=== PATIENT | female | born 1985 | race Caucasian/White ===

== ENCOUNTER 2021-04-23 13:27 | Outpatient (CLI) | payer OTHER ==
--- NOTE | 2021-04-23 15:37 | Ultrasound Report ---
PROCEDURE: OB First Trimester INDICATIONS: SUP OF ELDERLY MULTIGRAVIDA OUTSIDE/PRIOR DATING DATA: Last menstrual period (LMP): 02/09/2021. LMP-based estimated date of delivery (JENNA): 11/16/2021. First dating scan (date and location): 04/23/21. Estimated date of delivery (JENNA) from first dating scan: 11/13/2021. The below data below was generated using the ultrasound JENNA of 11/13/2021 TECHNIQUE: Real-time scanning was performed of the fetus and maternal pelvic organs, with image documentation. COMPARISON: None FINDINGS: Embryo: Single living intrauterine identified. pole identified. [place]-rump length me asures 3.9 cm corresponding to ultrasound estimate of gestational age of 10 weeks 6 days. Heart rate: 176 Measurement variability in dating: +/- 4 weeks by LMP, +/- 7 days by mean sac diameter (use before 6 weeks gestation if crown-rump length not able to be measured), +/- 5 days by crown-rump length (6-12 weeks gestation). Maternal organs: 2.0 x 1.9 x 2.2 cm right corpus luteal cyst. IMPRESSION: Single intrauterine with ultrasound estimated gestational age of 10 weeks 6 days correspond ing to ultrasound JENNA of 11/13/2021. Reviewed by: Jeanette Cooper MD, PhD on 04/23/2021 3:35 PM PDT Approved by: Jeanette Cooper MD, PhD on 04/23/2021 3:35 PM PDT Station ID: [id number]
== END 2021-04-23 13:28 | disposition home or self-care (01) ==
LOC: DI 13:27
PROVIDERS: ATTEND Obstetrics & Gynecology
DX: O09.521 Supervision of elderly multigravida, first trimester (principal); Z3A.10 10 weeks gestation of pregnancy; Z36.89 Encounter for other specified antenatal screening
CPT/HCPCS: 36415; 80306; 84443; 85025; 86592; 86762; 86769; 86787; 86803; 86850; 86900; 86901; 87340; 87389

== ENCOUNTER 2021-04-23 13:41 | Outpatient (CLI) | payer OTHER ==
[2021-04-23 14:07] LABS: BASOPHILS # (AUTO) 0.1 10^3/uL (0.0-0.1); BASOPHILS % (AUTO) 0.4 %; EOSINOPHILS % (AUTO) 0.3 %; HCT - HEMATOCRIT 39.5 % (37.0-47.0); HGB - HEMOGLOBIN 12.8 g/dL (12.0-16.0); LYMPHOCYTES # (AUTO) 2.9 10^3/uL (1.5-3.5); LYMPHOCYTES % (AUTO) 21.2 %; MEAN CORPUSCULAR HEMOGLOBIN 28.5 pg (27.0-31.0); MEAN CORPUSCULAR HGB CONC 32.4 g/dL (32.0-36.0); MEAN PLATELET VOLUME 9.6 fL (7.9-10.8); MONOCYTES # (AUTO) 0.9 10^3/uL (0.0-1.0); MONOCYTES % (AUTO) 6.3 %; NEUTROPHILS # (AUTO) 9.6 10^3/uL (1.5-6.6); PLT - PLATELET COUNT 267 10^3/uL (130-450); RED BLOOD COUNT 4.49 10^6/uL (4.20-5.40); RED CELL DISTRIBUTION WIDTH 12.9 % (12.0-15.0); WHITE BLOOD COUNT 13.6 x10^3/uL (4.8-10.8)
[2021-04-24 12:56] LABS: HEPATITIS C ANTIBODY NON-REACTIVE (NON-REACTIVE)
[2021-04-24 12:57] LABS: HEPATITIS B SURFACE ANTIGEN NON-REACTIVE (NON-REACTIVE)
[2021-04-24 14:46] LABS: HIV AG/AB 4TH GEN NON-REACTIVE (NON-REACTIVE)
== END 2021-04-23 13:42 | disposition home or self-care (01) ==
LOC: LAB 13:41
PROVIDERS: ATTEND Obstetrics & Gynecology
DX: Z36.89 Encounter for other specified antenatal screening (principal); O09.529 Supervision of elderly multigravida, unspecified trimester
CPT/HCPCS: 36415; 80306; 84443; 85025; 86592; 86762; 86769; 86787; 86803; 86850; 86900; 86901; 87340; 87389

== ENCOUNTER 2021-04-28 11:15 | Outpatient (CLI) | payer OTHER ==
[2021-04-29 13:09] LABS: MUDS CUTOFF CONCENTRATIONS CUTOFF CONC BELOW:
[2021-04-29 13:15] LABS: BILIRUBIN,URINE NEGATIVE (NEGATIVE); GLUCOSE, URINE (UA) NEGATIVE (NEGATIVE); KETONES,URINE (UA) NEGATIVE (NEGATIVE); LEUKOCYTE ESTERASE, URINE NEGATIVE (NEGATIVE); NITRITE,URINE NEGATIVE (NEGATIVE); OCCULT BLOOD,URINE NEGATIVE (NEGATIVE); PROTEIN,URINE NEGATIVE (NEGATIVE); UROBILINOGEN,URINE 0.2 (NORMAL) E.U./dL (NORMAL)
[2021-04-29 13:18] LABS: CLARITY,URINE CLEAR (CLEAR)
[2021-04-29 13:28] LABS: WBC,URINE 0-3 /HPF (0-5)
[2021-04-29 13:29] LABS: BACTERIA,URINE Few /HPF (None Seen); RBC,URINE 0-5 /HPF (0-5); SQUAMOUS EPITHELIAL CELL,UR RARE Squamous (<= Few)
[2021-04-29 13:30] LABS: AMPHETAMINE SCREEN,URINE NEGATIVE (NEGATIVE); BARBITURATE SCREEN,UR NEGATIVE (NEGATIVE); BENZODIAZEPINES SCREEN, URINE NEGATIVE (NEGATIVE); COCAINE SCREEN URINE NEGATIVE (NEGATIVE); METHADONE SCREEN, URINE NEGATIVE (NEGATIVE); METHAMPHETAMINES SCREEN, URINE NEGATIVE (NEGATIVE); OPIATE SCREEN, URINE NEGATIVE (NEGATIVE); OXYCODONE SCREEN, URINE NEGATIVE (NEGATIVE); PROPOXYPHENE SCREEN, URINE NEGATIVE (NEGATIVE); THC CANNABINOID SCREEN, URINE NEGATIVE (NEGATIVE); TRICYCLIC ANTIDEPRESSANT,URINE NEGATIVE (NEGATIVE)
[2021-04-29 22:49] LABS: CHLAMYDIA TRACHOMATIS DNA NEGATIVE (NEGATIVE); NEISSERIA GONORRHOEAE DNA NEGATIVE (NEGATIVE); TRICHOMONAS VAGINALIS DNA NEGATIVE (NEGATIVE)
== END 2021-04-28 23:59 | disposition home or self-care (01) ==
LOC: LAB.R 11:15
PROVIDERS: ATTEND Obstetrics & Gynecology
DX: Z36.89 Encounter for other specified antenatal screening (principal)
CPT/HCPCS: 80306; 81001; 87086; 87491; 87591; 87661

== ENCOUNTER 2021-06-23 11:36 | Outpatient (CLI) | payer OTHER ==
--- NOTE | 2021-06-23 12:35 | Ultrasound Report ---
PROCEDURE: Duplex Ext Veins Right INDICATIONS: EDEMA TECHNIQUE: Real-time imaging, as well as color and pulse Doppler interrogation, were performed of the lower extr emity deep veins from the inguinal ligament to the popliteal fossa. COMPARISON: None. FINDINGS: VASCULATURE: Normal spontaneous flow and phasicity, augmentation and waveforms, and compressibility o f the vessels from the common femoral veins through the calf veins. SOFT TISSUES: Prominent varicosities are noted in the lateral soft tissues. IMPRESSION: No sonographic evidence of deep venous thrombus. Reviewed by: Kunal Vergara MD on 06/23/2021 12:34 PM PDT Approved by: Kunal Vergara MD on 06/23/2021 12:34 PM PDT Station ID: [id number]
== END 2021-06-23 11:37 | disposition home or self-care (01) ==
LOC: DI 11:36
PROVIDERS: ATTEND Obstetrics & Gynecology
DX: I82.461 Acute embolism and thrombosis of right calf muscular vein (principal)

== ENCOUNTER 2021-06-30 13:52 | Outpatient (CLI) | payer OTHER ==
--- NOTE | 2021-07-01 09:54 | Ultrasound Report ---
PROCEDURE: OB Detailed Eval INDICATIONS: SUPERVISION OF ELDERLY MULTIGRAVIDA OUTSIDE/PRIOR DATING DATA: Last menstrual period (LMP): February 09, 2021. LMP-based estimated date of delivery (JENNA): November 16, 2021. First dating scan (date and location): [facility]; April 23, 2021. Estimated date of delivery (JENNA) from first dating scan: November 13, 2021. The below data below was generated using the ultrasound JENNA of November 13, 2021 TECHNIQUE: Real-time scanning was performed of the fetus, with image documentation and biometric measurements. COMPARISON: April 23, 2021. FINDINGS: General: A single living intrauterine gestation is present. Presentation: Transverse, variable Placenta: Placental position is posterior, without previa. Amniotic fluid index: 12.9 cm, appropriate for gestational age. heart rate: 148 beats per minute. Maternal cervical canal: 4.6 cm long; normal length is 2.5 cm or more. biometrics: Biparietal diameter: 4.61 cm Head circumference: 17.5 cm Abdominal circumference: 15.7 cm Femur length: 3.2 cm Estimated gestational age from initial scan: not applicable. Composite gestational age from present scan: 20 weeks, 1 day Estimated weight and percentile: 352.5 g +/- 52 g; 36.6% Measurement variability in biometric dating: +/- 10 days from 12-20 weeks gestation, +/- 2 weeks from 20-30 weeks gestation, +/- 3 weeks at 30 weeks gestation or later. Anatomic survey: Neuro: Ventricles are normal at less than 10 mm. Cisterna magna is normal at 3-11 mm. Cerebellum i s normal in size and morphology. Nuchal skin fold: Normal at less than 6 mm between 14 and 20 weeks gestational age. Face: Suboptimally visualized. Spine: No evidence for spina bifida. Heart: Suboptimally visualized heart and ventricular outflow tracts. Diaphragm: Diaphragm is intact. Stomach: Left-sided stomach is present. Kidneys: No hydronephrosis. Normal is less than 5 mm in 2nd trimester, less than 7 mm in 3rd trimester. Cord: 3 vessel cord has orthotopic insertion. Bladder: Normal in size. Extremities: All 4 extremities are visualized. IMPRESSION: Live single intrauterine gestation as detailed above. Reviewed by: Kunal Vergara MD on 07/01/2021 9:53 AM PDT Approved by: Kunal Vergara MD on 07/01/2021 9:53 AM PDT Station ID: [id number]
== END 2021-06-30 13:53 | disposition home or self-care (01) ==
LOC: DI 13:52
PROVIDERS: ATTEND Obstetrics & Gynecology
DX: Z36.89 Encounter for other specified antenatal screening (principal); O09.522 Supervision of elderly multigravida, second trimester; Z3A.20 20 weeks gestation of pregnancy

== ENCOUNTER 2021-08-06 16:29 | Outpatient (CLI) | payer OTHER ==
--- NOTE | 2021-08-09 09:14 | Ultrasound Report ---
PROCEDURE: OB F/U or Repeat INDICATIONS: SUPERVISION OF OUTSIDE/PRIOR DATING DATA: Last menstrual period (LMP): 02/09/2021. LMP-based estimated date of delivery (JENNA): 11/16/2021. First dating scan (date and location): 04/23/2021. Estimated date of delivery (JENNA) from first dating scan: 11/13/2021. The below data below was generated using the ultrasound derived JENNA of 11/13/2021 TECHNIQUE: Real-time scanning was performed of the fetus, with image documentation and biometric measurements. COMPARISON: 04/23/2021, 06/30/2021. FINDINGS: General: A single living intrauterine gestation is present. Presentation: Transverse, head to maternal right. Placenta: Placental position is posterior, without previa. Amniotic fluid index: 11.7 cm, within normal limits for gestational age. Largest pocket measures 3.6 cm. heart rate: 141 beats per minute. Maternal cervical canal: 4.1 cm long; normal length is 2.5 cm or more. Other: A limited anatomic survey was performed for follow-up of structures not well seen on th e prior study. facial profile appears within normal limits. A four-chamber view of the heart as well as right and left ventricular outflow tracts appear within normal limits. The skin line along t he sacral spine was not well seen due to position. IMPRESSION: 1. Single living intrauterine demonstrated in transverse presentation. 2. Limited anatomic survey performed for follow-up demonstrates normal appearance of the facial profile and heart. The sacral spinal region was not well evaluated due to position. Reviewed by: Alfonso Cisse MD on 08/09/2021 9:13 AM PST Approved by: Alfonso Cisse MD on 08/09/2021 9:13 AM PST Station ID: [id number]
== END 2021-08-06 16:30 | disposition home or self-care (01) ==
LOC: DI 16:29
PROVIDERS: ATTEND Obstetrics & Gynecology
DX: O09.529 Supervision of elderly multigravida, unspecified trimester (principal)

== ENCOUNTER 2021-08-18 08:05 | Outpatient (CLI) | payer OTHER ==
[2021-08-18 09:45] LABS: HCT - HEMATOCRIT 32.5 % (37.0-47.0); HGB - HEMOGLOBIN 10.6 g/dL (12.0-16.0); MEAN CORPUSCULAR HEMOGLOBIN 28.2 pg (27.0-31.0); MEAN CORPUSCULAR HGB CONC 32.6 g/dL (32.0-36.0); MEAN CORPUSCULAR VOLUME 86.4 fL (81.0-99.0); MEAN PLATELET VOLUME 9.4 fL (7.9-10.8); RED BLOOD COUNT 3.76 10^6/uL (4.20-5.40); RED CELL DISTRIBUTION WIDTH 13.5 % (12.0-15.0); WHITE BLOOD COUNT 13.3 x10^3/uL (4.8-10.8)
== END 2021-08-18 08:06 | disposition home or self-care (01) ==
LOC: LAB 08:05
PROVIDERS: ATTEND Obstetrics & Gynecology
DX: O09.529 Supervision of elderly multigravida, unspecified trimester (principal)
CPT/HCPCS: 36415; 82947; 82950; 85027

== ENCOUNTER 2021-10-15 09:30 | Outpatient (CLI) | payer OTHER ==
[2021-10-15 16:54] LABS: CREATININE,URINE 27.8 mg/dL; TOTAL VOLUME 24HRS,URINE 3400 mL
[2021-10-15 17:08] LABS: CREATININE 24 HOUR,URINE 945 mg/24h (600-1800); TOTAL PROTEIN,URINE TIMED < 6 mg/dL
== END 2021-10-15 23:59 | disposition home or self-care (01) ==
LOC: LAB 09:30
PROVIDERS: ATTEND Nurse Practitioner Obstetrics & Gynecology
DX: O16.9 Unspecified maternal hypertension, unspecified trimester (principal)
CPT/HCPCS: 82570; 84156

== ENCOUNTER 2021-10-20 08:00 | Outpatient (CLI) | payer OTHER | END 2021-10-20 23:59 | LOC: LAB 08:00 | PROVIDERS: ATTEND Obstetrics & Gynecology | DX: Z36.85 Encounter for antenatal screening for Streptococcus B (principal) | CPT/HCPCS: 87797 ==

== ENCOUNTER 2021-11-01 15:56 | Outpatient (CLI) | payer OTHER ==
--- NOTE | 2021-11-02 00:53 | Ultrasound Report ---
PROCEDURE: OB Biophysical Profile INDICATIONS: SUPERVISION OF ELDERLY MULTIGRAVIDA OUTSIDE/PRIOR DATING DATA: Last menstrual period (LMP): 02/09/2021. LMP-based estimated date of delivery (JENNA): 11/16/2021. First dating scan (date and location): 04/23/2021. Estimated date of delivery (JENNA) from first dating scan: 11/13/2021. The below data below was generated using the ultrasound JENNA of 11/13/2021 TECHNIQUE: Real-time scanning was performed of the fetus, with image documentation. Biophysical pro file was also obtained. Endovaginal scanning: Not performed. COMPARISON: OB ultrasound 08/06/2021 FINDINGS: General: A single living intrauterine gestation is present. Presentation: Vertex Placenta: Placental position is posterior, without previa. Amniotic fluid index: 12 cm, normal for gestational age. Deepest vertical fluid pocket is 5.4 cm. heart rate: 129 beats per minute. Maternal cervical canal: 3.6 cm long; normal length is 2.5 cm or more. Estimated gestational age from initial scan: 38 weeks 2 days Biophysical profile: Tone: 2 points. Movement: 2 points. Respiration: 2 points. Largest pocket of fluid: 2 points. Umbilical artery Doppler: 2.7 at the placental insertion, 2.7 at the midportion, and 2.0 at the dist al attachment Miscellaneous: Left renal pelviectasis is noted measuring 7 mm in anteroposterior dimension. Right re nal pelvis measures 6 mm in anteroposterior dimension. IMPRESSION: 1.Single live intrauterine . 2.Biophysical profile score is 8 of 8. 3.Amniotic fluid index is 12 cm. 4.Borderline left greater than right pelviectasis. Recommend attention on follow-up exams. Reviewed by: Ramy Valencia MD on 11/02/2021 12:51 AM PST Approved by: Ramy Valencia MD on 11/02/2021 12:51 AM PST Station ID: [id number]
== END 2021-11-01 15:57 | disposition home or self-care (01) ==
LOC: DI 15:56
PROVIDERS: ATTEND Obstetrics & Gynecology
DX: O09.523 Supervision of elderly multigravida, third trimester (principal); Z3A.38 38 weeks gestation of pregnancy; O35.8XX0 Maternal care for other (suspected) fetal abnormality and damage, not applicable or unspecified

== ENCOUNTER 2021-11-09 07:57 | Outpatient (CLI) | payer OTHER ==
--- NOTE | 2021-11-09 08:52 | PROCEDURE REPORT ---
- HPI Diagnosis/Indication for NST: Gestational Hypertension - NST Procedure NST Procedure Start Time 11:30 Stop Time 12:05 EFM: 150s, moderate variability, positive accelerations 15x15, no decelerations Aten: 2 contractions, not noted by patient NST reactive - Results and Plan Findings/Impression: 36yo at 39w presenting for NST for chronic hypertension; also complicated by AMA - NST reactive - Plan for IOL in 2d
[2021-11-09 09:35] VITALS: BP 136/89
== END 2021-11-09 09:05 | disposition home or self-care (01) ==
LOC: WFO 07:57 → FBP 08:00 → WFO 09:05
PROVIDERS: ATTEND Obstetrics & Gynecology
DX: O13.3 Gestational [pregnancy-induced] hypertension without significant proteinuria, third trimester (principal); Z3A.39 39 weeks gestation of pregnancy; O09.523 Supervision of elderly multigravida, third trimester
CPT/HCPCS: 59025

== ENCOUNTER 2021-11-11 07:58 | Inpatient (IN) | payer OTHER ==
[2021-11-11] MEDS ORDERED: CARBOPROST TROMETHAMINE 250 MCG/ML AMP IM PRN (09:02)
[2021-11-11] MEDS ORDERED: LACTATED RINGERS 400 ML CERVICA030 PRN (09:02)
[2021-11-11] MEDS ORDERED: OXYTOCIN 10 UNIT/ML VIAL IM PRN (09:02)
[2021-11-11] MEDS ORDERED: hydrALAZINE INJ 20 MG/ML VIAL IVP PRN (09:02)
[2021-11-11] MEDS ORDERED: TRANEXAMIC ACID IN NACL 1,000 MG/100 ML BAG IV PRN (09:02)
[2021-11-11] MEDS ORDERED: LABETALOL 20 MG/4 ML SYRINGE IVP PRN ×2 (09:02)
[2021-11-11] MEDS ORDERED: ACETAMINOPHEN 500 MG TABLET PO PRN (09:02)
[2021-11-11] MEDS ORDERED: LIDOCAINE-MPF 1% 30 ML VIAL ID PRN (09:02)
[2021-11-11] MEDS ORDERED: LACTATED RINGERS 1,000 ML IV PRN (09:02)
[2021-11-11] MEDS ORDERED: LACTATED RINGERS 1,000 ML CERVICA030 PRN (09:02)
[2021-11-11] MEDS ORDERED: TERBUTALINE 1 MG/ML VIAL SUBQ PRN (09:02)
[2021-11-11] MEDS ORDERED: miSOPROStoL 200 MCG TABLET BC PRN (09:02)
[2021-11-11] MEDS ORDERED: miSOPROStoL 200 MCG TABLET PR PRN (09:02)
[2021-11-11] MEDS ORDERED: fentaNYL 100 MCG/2 ML VIAL IVP PRN (09:02)
[2021-11-11] MEDS ORDERED: SODIUM CHLORIDE FLUSH 0.9% 10 ML SYRINGE IVP PRN (09:02)
[2021-11-11] MEDS ORDERED: METHYLERGONOVINE 0.2 MG/ML VIAL IM PRN (09:02)
[2021-11-11] MEDS ORDERED: OXYTOCIN/SODIUM CHLORIDE 500 ML IV PRN ×2 (09:02→22:45)
[2021-11-11] MEDS ORDERED: hydrOXYzine PAMOATE 25 MG CAPSULE PO SCH (09:06)
[2021-11-11] MEDS ORDERED: SODIUM CHLORIDE FLUSH 0.9% 10 ML SYRINGE IVP SCH (10:00)
[2021-11-11] MEDS ORDERED: ROPIVACAINE 0.2% 200 MG/100 ML BAG EP ONE (18:56)
[2021-11-11] MEDS ORDERED: SODIUM CHLORIDE 0.65% NASAL SPRAY NAS PRN (19:07)
[2021-11-11 19:14] LABS: BASOPHILS % (AUTO) 0.4 %; EOSINOPHILS % (AUTO) 0.4 %; HCT - HEMATOCRIT 38.1 % (37.0-47.0); HGB - HEMOGLOBIN 12.8 g/dL (12.0-16.0); LYMPHOCYTES % (AUTO) 14.9 %; MEAN CORPUSCULAR HEMOGLOBIN 28.2 pg (27.0-31.0); MEAN CORPUSCULAR HGB CONC 33.6 g/dL (32.0-36.0); MEAN CORPUSCULAR VOLUME 83.9 fL (81.0-99.0); MEAN PLATELET VOLUME 10.3 fL (7.9-10.8); MONOCYTES % (AUTO) 6.3 %; NEUTROPHILS % (AUTO) 73.4 %; PLT - PLATELET COUNT 214 10^3/uL (130-450); RED BLOOD COUNT 4.54 10^6/uL (4.20-5.40); RED CELL DISTRIBUTION WIDTH 14.6 % (12.0-15.0); WHITE BLOOD COUNT 16.8 x10^3/uL (4.8-10.8)
--- NOTE | 2021-11-11 19:16 | HISTORY & PHYSICAL EXAMINATION ---
Admit History - : 3 Parity: 2 Risk/History: positive: induced HTN Complications This : positive: Chronic HTN Smoking Status: Never smoker - Mother's Labs Mother's Blood Type: positive: A Mother's RH: positive: Positive GBS: positive: Group B Step Negative Rubella Status: positive: Immune - Other Maternal History Other Maternal History: ID: Patient is a 36 yo at 39+2 wga here for IOL for CHTN HPI: Hx of elevated blood pressures in mild range since prior to 20 wga. Normal blood pressures at home. Not on medication. hx of GHTN in prior but denies pre-eclampsia. has been otherwise uncomplicated. Has needle phobia and poor reaction to blood draw. Declining all blood draws at admission. Desires AROM prior to starting pitocin or misoprostol. PNC HX: LMP: 02/09/2021 JENNA by LMP: 11/16/2021 Initial US on 04/23/21 at 10.6 wks c/w LMP dating FINAL JENNA 11/16/2021 PROBLEMS: Left pelviectasis: Noted at 37 weeks. Left renal of ectasis at 7 mm. Right normal at 6 mm. Needle phobia: Wants to avoid IV in labor if possible. Encourage patient to open as we will need this for IV hydration, emergency use, and oxytocin US Dopplers of RLE ordered stat to assess RLE- normal -Reviewed warning signs. Nl exam. 08/18/21 CHTN: Given elevated BP at 11 weeks; techincally CHTN hx of GHTN: Elevated BP in mild range. See noted. Has normal BPS at home -Started ASA at 12 weeks -UA with negative protein -Repeat 24H urine 10/15/21 -IOL at 39 weeks -Growth us ordered 10/20-has not yet been scheduled.Performed test only BPP. -Reviewed indications for testing. Difficult as only has elevated BP in clinic. Anemia: starting bid iron and vit C A+/rubella immune Genetic testing: HEIDI 46XY Declines AFP and carrier screening despite funeral counselor FAS: Posterior, 3 VC. FAS wnl, EFW 33%ile, CL>3 cm. Incomplete cardiac views and facies. FU US 07/21/21 wnl Glucola 125 Flu: 06/23/2021 TDAP: 09/15/2021 COVID: vaccination x2. Sep 2020 Moderna. booster 08/13/2021 GBS: negative HSV:Denies Breast pump rx: 07/21/2021 MOD: anticipate IOL at 39 weeks PP contraception: TBD PAP: 09/22/20-unsatisfactory. HPV negative Past Medical History: Anxiety Disorder Past Surgical History: Sinus (2002) Burnett teeth (2003) Family History Summary: Family History of Allergies for Father Family History of Arthritis for Father, Psoriasis Family History of Hypertension for Father Family History of Other Cancer for Maternal Grandmother, melanoma Legacy Family History Notes: Hypertension: Father Diabetes: Paternal grandmother Cancer: MGM melanoma GM GM: Ovarian Multiple hysterectomies among women in her family. Social History Summary: Previous Social History: Patient has never smoked. Passive Smoke: N Alcohol Use: N Drug Use: N HIV/High Risk: N Regular Exercise: Y Hx Domestic Abuse: N Orthodox Affecting Care: Y Sexually Active: Y ROS: As per HPI, otherwise remaining systems are negative. PE: GEN: NAD HEAD: NCAT EYES: No scleral icterus or conjunctival injection CV: RR RESP: normal effort ABD: gravid, S&NT/ND PSYCH: appropriate affect NEURO: alert and oriented, normal gait and coordination EXT: WWP VULVA: Normal external female genitalia. Normal Bartholin's, Norcatur's, urethra meatus and anus. SVE 2.5/75%-2 EFM: 140 mod [place] 15x15 accels no decels TOCO: quiet A/P: 36 yo at 39+2 with affected by CHTN here for IOL IOL: Patient requesting AROM as starting point for IOL -Reviewed risks of early AROM -Recommended Sellers balloon as alternative. Patient decided she prefers AROM -Open to pitocin if labor does not start within 4 hours FEN: Allowing IV placement -Declining all blood work despite extensive discussion regarding risk of hemorrhage and use of unmatched blood, limitations on O neg blood supply, possible inability to obtain epidural given lack of data on platelets. -Patient declining all blood work PAIN: Wants to attempt umnedicated delivery -Has had epidural x2 in past deliveries. -Will discuss blood draw should epidural be requested -Nitrous oxide an option in interim -Fentanyl 50 mcg Q2H until 7 cm and with cumulative max dose limited to 200 mcg FWB: vertex, GBS neg, well grown, Cat I tracing -CEFM with initiation of pitocin. Observation with cervical ripening In-patient care with AROM/SROM, placement of epidural, onset of labor, initiation of pitocin. Meds/Allgy - Allergies Allergies/Adverse Reactions: Allergies Allergy/AdvReac Type Severity Reaction Status Date / Time hay fever AdvReac Mild Unknown Uncoded 11/11/21 15:22 pollen AdvReac Mild Unknown Uncoded 11/11/21 15:21 Physical - Abdominal Exam Vital Signs: Temp Pulse Resp BP Pulse Ox 98.6 F 11/11/21 08:34
[2021-11-11 19:24] LABS: SLIDE REVIEW? Indicated
[2021-11-11 19:42] LABS: ABNORMAL LYMPHS % (MANUAL) 0 %
[2021-11-11 19:43] LABS: BAND NEUTROPHILS % (MANUAL) 4 %; DIFFERENTIAL COMMENT MANUAL DIFFERENTIAL; EOSINOPHILS # (MANUAL) 0.8 10^3/uL (0-0.7); LYMPHOCYTES # (MANUAL) 3.2 10^3/uL (1.5-3.5); LYMPHOCYTES % (MANUAL) 18 %; NEUTROPHILS # (MANUAL) 12.8 10^3/uL (1.5-6.6); PLATELET ESTIMATE, MANUAL NORMAL (130-450,000) (NORMAL); PLATELET MORPHOLOGY NORMAL APPEARANCE (NORMAL); RBC MORPHOLOGY (MULTIPLE) NORMAL APPEARANCE (NORMAL); REACTIVE LYMPHS % (MANUAL) 1 %
[2021-11-11] MEDS ORDERED: ePHEDrine 50 MG/ML VIAL IVP ONE (19:54)
[2021-11-11] MEDS ORDERED: ONDANSETRON 4 MG/2 ML VIAL ONE (19:54)
[2021-11-11] MEDS ORDERED: ONDANSETRON 4 MG/2 ML VIAL IVP PRN (19:59)
[2021-11-11] MEDS ORDERED: ePHEDrine 50 MG/ML VIAL IVP PRN (19:59)
[2021-11-11] MEDS ORDERED: ROPIVACAINE 0.2% 200 MG/100 ML BAG EP PRN (19:59)
[2021-11-11] MEDS ORDERED: METOCLOPRAMIDE 10 MG/2 ML VIAL IVP PRN (19:59)
[2021-11-11] MEDS ORDERED: NALBUPHINE 10 MG/ML AMP IVP PRN (19:59)
[2021-11-11] MEDS ORDERED: diphenhydrAMINE INJ 50 MG/ML VIAL IVP PRN (19:59)
[2021-11-11] MEDS ORDERED: NALOXONE 0.4 MG/ML VIAL IVP PRN (19:59)
--- NOTE | 2021-11-11 20:02 | ANESTHESIA ---
Pre-Anesthesia VS, & Labs - Diagnosis labor - Procedure epidural Vital Signs: Temp Pulse Resp BP Pulse Ox 37.0 C 11/11/21 08:34 Height: 5 ft 7 in Weight (kg): 89.811 kg Body Mass Index: 31.0 BMI Classification: Obese - NPO >8 hours - Is Patient ?: Yes - Lab Results Current Lab Results: Laboratory Tests 11/11/21 19:20: Blood Type A POSITIVE, Antibody Screen NEGATIVE 11/11/21 18:55: WBC 16.8 H, RBC 4.54, Hgb 12.8, Hct 38.1, MCV 83.9, MCH 28.2, MCHC 33.6, RDW 14.6, Plt Count 214, MPV 10.3, Neut # (Auto) Not Reportable, Lymph # (Auto) Not Reportable, [place] # (Auto) Not Reportable, Eos # (Auto) Not Reportable, Baso # (Auto) Not Reportable, Absolute Nucleated RBC Not Reportable, Total Counted 100, Band Neuts % (Manual) 4, Reactive Lymphs % (Man) 1, Abnorm Lymph % (Manual) 0, Nucleated RBC % Not Reportable, Neutrophils # (Manual) 12.8 H, Lymphocytes # (Manual) 3.2, Monocytes # (Manual) 0.0, Eosinophils # (Manual) 0.8 H, Basophils # (Manual) 0.0, Differential Comment MANUAL DIFFERENTIAL, Manual Slide Review Indicated, Platelet Estimate NORMAL (130-450,000), Platelet Morphology NORMAL APPEARANCE, RBC Morph Micro Appear NORMAL APPEARANCE Fish Bones: 11/11/21 18:55 Home Medications and Allergies Active Medications Hydralazine HCl (Hydralazine Inj 20 Mg/Ml Vial) 10 mg IVP .ONCE PRN; Protocol PRN Reason: Step 9 of Labetalol protocol Stop: 11/16/21 09:04 Hydroxyzine Pamoate (Hydroxyzine Pamoate 25 Mg Capsule) 50 mg PO ONCE MERYL Stop: 11/12/21 00:00 Labetalol HCl (Labetalol 20 Mg/4 Ml Syringe) 20 - 80 mg IVP Q10M PRN; Protocol PRN Reason: SBP> or= 160 OR DBP> or= 110 Sodium Chloride (Sodium Chloride 0.65% Nasal [place]) 2 sprays SUNIL Q4HR PRN PRN Reason: Nasal Congestion Allergies/Adverse Reactions: Allergies Allergy/AdvReac Type Severity Reaction Status Date / Time hay fever AdvReac Mild Unknown Uncoded 11/11/21 15:22 pollen AdvReac Mild Unknown Uncoded 11/11/21 15:21 Anes History & Medical History - Anesthetic History Anesthesia Complications: reports: No previous complications - Medical History Cardiovascular: reports: None Pulmonary: reports: None Gastrointestinal: reports: None Smoking Status: Never smoker History of Cancer?: No - Obstetrical History : 3 Parity: 2 Events: reports: induced HTN Complications: reports: Chronic HTN Exam General: Alert, Oriented x3, Cooperative Dental: WNL Mouth Opening: Greater than 4 Fingerbreadths Mallampati classification: II Respiratory: Lungs clear Cardiovascular: Regular rate Plan Anesthesia Type: Epidural Consent for Procedure(s) Verified and Reviewed: Yes Code Status: Attempt Resuscitation ASA classification: 2-Mild systemic disease Is this case an emergency?: No
--- NOTE | 2021-11-11 21:13 | PROVIDER PROGRESS NOTE ---
Subjective - Prog Note Date Prog Note Date: 11/11/21 Prog Note Time: 13:30 - Subjective Subjective: Patient requesting IOL with AROM Reviewed R/B/A including risk of chorio, cord prolapse, need for pitocin AROM with passage of clear fluid Cat I tracing prior to and following AROM Anticipate BP 128/68 96 Objective - Lab Results Fish Bones: 11/11/21 18:55 Other Labs: Lab Results x24hrs 11/11/21 11/11/21 Range/Units 19:20 18:55 WBC 16.8 H (4.8-10.8) x10^3/uL RBC 4.54 (4.20-5.40) 10^6/uL Hgb 12.8 (12.0-16.0) g/dL Hct 38.1 (37.0-47.0) % MCV 83.9 (81.0-99.0) fL MCH 28.2 (27.0-31.0) pg MCHC 33.6 (32.0-36.0) g/dL RDW 14.6 (12.0-15.0) % Plt Count 214 (130-450) 10^3/uL MPV 10.3 (7.9-10.8) fL Neut # (Auto) Not Reportable Lymph # (Auto) Not Reportable [place] # (Auto) Not Reportable Eos # (Auto) Not Reportable Baso # (Auto) Not Reportable Absolute Nucleated RBC Not Reportable Total Counted 100 Band Neuts % (Manual) 4 (0 - 10) % Reactive Lymphs % (Man) 1 % Abnorm Lymph % (Manual) 0 % Nucleated RBC % Not Reportable Neutrophils # (Manual) 12.8 H (1.5-6.6) 10^3/uL Lymphocytes # (Manual) 3.2 (1.5-3.5) 10^3/uL Monocytes # (Manual) 0.0 (0.0-1.0) 10^3/uL Eosinophils # (Manual) 0.8 H (0-0.7) 10^3/uL Basophils # (Manual) 0.0 (0-0.1) 10^3/uL Differential Comment MANUAL DIFFERENTIAL Manual Slide Review Indicated Platelet Estimate NORMAL (130-450,000) (NORMAL) Platelet Morphology NORMAL APPEARANCE (NORMAL) RBC Morph Micro Appear NORMAL APPEARANCE (NORMAL) Blood Type A POSITIVE Antibody Screen NEGATIVE
--- NOTE | 2021-11-11 21:15 | PROVIDER PROGRESS NOTE ---
Subjective - Prog Note Date Prog Note Date: 11/11/21 Prog Note Time: 19:30 - Subjective Subjective: Patient requesting epidural FERMENTER HELPER requesting CBC prior to placement Patient agrees to CBC and T&S BP 118/66 98 5/75%/-2 per RN exam Cat I tracing Proceed with blood draw FERMENTER HELPER aware of request for LEP Objective - Lab Results Fish Bones: 11/11/21 18:55 Other Labs: Lab Results x24hrs 11/11/21 11/11/21 Range/Units 19:20 18:55 WBC 16.8 H (4.8-10.8) x10^3/uL RBC 4.54 (4.20-5.40) 10^6/uL Hgb 12.8 (12.0-16.0) g/dL Hct 38.1 (37.0-47.0) % MCV 83.9 (81.0-99.0) fL MCH 28.2 (27.0-31.0) pg MCHC 33.6 (32.0-36.0) g/dL RDW 14.6 (12.0-15.0) % Plt Count 214 (130-450) 10^3/uL MPV 10.3 (7.9-10.8) fL Neut # (Auto) Not Reportable Lymph # (Auto) Not Reportable [place] # (Auto) Not Reportable Eos # (Auto) Not Reportable Baso # (Auto) Not Reportable Absolute Nucleated RBC Not Reportable Total Counted 100 Band Neuts % (Manual) 4 (0 - 10) % Reactive Lymphs % (Man) 1 % Abnorm Lymph % (Manual) 0 % Nucleated RBC % Not Reportable Neutrophils # (Manual) 12.8 H (1.5-6.6) 10^3/uL Lymphocytes # (Manual) 3.2 (1.5-3.5) 10^3/uL Monocytes # (Manual) 0.0 (0.0-1.0) 10^3/uL Eosinophils # (Manual) 0.8 H (0-0.7) 10^3/uL Basophils # (Manual) 0.0 (0-0.1) 10^3/uL Differential Comment MANUAL DIFFERENTIAL Manual Slide Review Indicated Platelet Estimate NORMAL (130-450,000) (NORMAL) Platelet Morphology NORMAL APPEARANCE (NORMAL) RBC Morph Micro Appear NORMAL APPEARANCE (NORMAL) Blood Type A POSITIVE Antibody Screen NEGATIVE
[2021-11-11] MEDS ORDERED: miSOPROStoL 200 MCG TABLET ONE (21:50)
[2021-11-11] MEDS ORDERED: OXYTOCIN 10 UNIT/ML VIAL ONE (21:50)
[2021-11-11] MEDS ORDERED: OXYTOCIN/SODIUM CHLORIDE 500 ML IV ONE (22:20)
[2021-11-11] MEDS ORDERED: TRANEXAMIC ACID IN NACL 1,000 MG/100 ML BAG IV ONE (22:24)
[2021-11-11] MEDS ORDERED: CARBOPROST TROMETHAMINE 250 MCG/ML AMP IM ONE (22:24)
[2021-11-11] MEDS ORDERED: LACTATED RINGERS 1,000 ML ONE (22:25)
[2021-11-11] MEDS ORDERED: METHYLERGONOVINE 0.2 MG/ML VIAL ONE (22:26)
[2021-11-11] MEDS ORDERED: LOPERAMIDE 2 MG CAPSULE PO PRN (22:41)
[2021-11-11] MEDS ORDERED: DOCUSATE SODIUM 100 MG CAPSULE PO PRN (22:42)
[2021-11-11] MEDS ORDERED: SIMETHICONE CHEW 80 MG TABLET PO PRN (22:42)
[2021-11-11] MEDS ORDERED: HYDROCORTISONE 1% CREAM 28 GM TUBE PR PRN (22:42)
[2021-11-11] MEDS ORDERED: LACTATED RINGERS 1,000 ML IV SCH ×2 (22:42→23:00)
[2021-11-11] MEDS ORDERED: WITCH HAZEL/GLYCERIN 1 PAD TOP PRN (22:42)
[2021-11-11] MEDS ORDERED: ONDANSETRON ODT 4 MG TABLET TL PRN (22:42)
[2021-11-11] MEDS ORDERED: TRANEXAMIC ACID 1,000 MG in SODIUM CHLORIDE 0.9% 100ML 100 ML IV PRN (22:45)
--- NOTE | 2021-11-11 22:55 | DELIVERY NOTE ---
Delivery Note - Labor Labor: positive: Induced by ARM - Infant Delivery Method Delivery Method: positive: Spontaneous vaginal delivery - Presentation Presentation: positive: Vertex, CAROL - right occiput anterior - Nuchal Cord Nuchal Cord: positive: None - Anesthetic Anesthetic Type: - Amniotic Fluid Description Amniotic Fluid Description: positive: Clear - Episiotomy Type Episiotomy Type: positive: None - Laceration Laceration: positive: 1st degree - Suture Suture Type: positive: Vicryl Suture Size: positive: 3-0 - Delivery Outcome Delivery Outcome: positive: Livebirth - [place] : positive: Placed in direct skin contact with mother, Stimulated, Warmed, [place] used sex: positive: Female : Apgars 9/9 : BW 3917g - Cord Cord: positive: 3 vessels - Placenta Placenta: positive: Intact, Expressed - Estimated Blood Loss Estimated Blood Loss (in cc): 1,470 (QBL) - Post Delivery Events Post Delivery Events: positive: Hemorrhage - Delivery Comments (Free Text/Narrative) Delivery Comments (Free Text/Narrative): Patient is a 36 yo admitted at 39+2 wga for induction of labor for CHTN. STAGE I: Initial SVE was 2.5/75%/-2 station. Category I tracing. Patient requested artificial rupture of membranes as first step in induction process. Risks were reviewed and patient opted to proceed. AROM at 13:15 with passage of clear fluid. GBS negative. Epidural for pain management. Cat I tracing th roughout Stage I labor. No pitocin augmentation was indicated. Complete at 21:40 STAGE II: Patient pushed well for 3 minutes to deliver a viable female infant from vertex presentation. Infant delivered from CAROL presentation and left shoulder was anterior and delivered easily. was delivered to maternal chest. Cord was clamped x2 and cut once pulsations had ceased. No nuchal cord. Apgars were 9/9. BW 3917 g. STAGE III: Placenta delivered at 21:49 with manual expression. Perineum was examined and a small 1st degree laceration was noted at the midline. It was repaired with 3-0 Vicryl in the usual sterile fashion. Patient had a hemorrhage with QBL showing blood loss of 1470 cc. Patient was treated with 10 units of pitocin IM followed with misoprostol 600 mcg buccal, hemabate 0.25 mg IM, TXA, and then an infusion of oxytocin 30 units. Good hemostasis was noted. Vital signs were stable and appropriate post delivery.
[2021-11-12] MEDS: ACETAMINOPHEN 325 MG TABLET PO PRN ×5 (00:36→20:18)
[2021-11-12] MEDS: IBUPROFEN 600 MG TABLET PO SCH ×4 (00:37→22:55)
[2021-11-12 05:38] LABS: BASOPHILS # (AUTO) 0.1 10^3/uL (0.0-0.1); BASOPHILS % (AUTO) 0.3 %; EOSINOPHILS % (AUTO) 0.2 %; HCT - HEMATOCRIT 30.9 % (37.0-47.0); HGB - HEMOGLOBIN 10.4 g/dL (12.0-16.0); LYMPHOCYTES # (AUTO) 2.2 10^3/uL (1.5-3.5); MEAN CORPUSCULAR HEMOGLOBIN 28.3 pg (27.0-31.0); MEAN CORPUSCULAR HGB CONC 33.7 g/dL (32.0-36.0); MEAN PLATELET VOLUME 10.3 fL (7.9-10.8); MONOCYTES # (AUTO) 1.1 10^3/uL (0.0-1.0); MONOCYTES % (AUTO) 6.2 %; NEUTROPHILS # (AUTO) 14.2 10^3/uL (1.5-6.6); NEUTROPHILS % (AUTO) 77.5 %; PLT - PLATELET COUNT 167 10^3/uL (130-450); RED BLOOD COUNT 3.68 10^6/uL (4.20-5.40); RED CELL DISTRIBUTION WIDTH 14.5 % (12.0-15.0); WHITE BLOOD COUNT 18.3 x10^3/uL (4.8-10.8)
[2021-11-12] MEDS ORDERED: FERRIC GLUCONATE 125 MG in SODIUM CHLORIDE 0.9% 100ML 100 ML IV ONE (09:00)
[2021-11-12 17:03] VITALS: BP 127/59
--- NOTE | 2021-11-12 19:15 | Discharge Plan ---
Discharge Plan Problem Reviewed?: Yes Disposition: Home, Self Care Condition: Good Prescriptions: Docusate Sodium 100Mg Capsule [Colace 100Mg Capsule] 100 - 200 mg PO BID PRN #60 cap PRN Reason: Constipation Activity Restrictions: Additional Comments (See below) Shower Restrictions: Yes (No tub baths or hot tubs for 4 weeks) Additional Instructions or Follow Up instructions: Nothing in the vagina for 6 weeks: No intercourse, tampons, douching Call for: -Fever greater than 100.5 -Pain that does not improve with pain medication -Heavy bleeding in which you are soaking a pad an hour for 2 hours in a row -Pain in the legs (especially one sided), swelling in one leg and not the other, or difficulty/pain with breathing. No tub baths or hot tubs for 4 weeks DISCHARGE MEDICATIONS: Ibuprofen 600 mg by mouth every 6 hours as needed for pain Acetaminophen 500-1000 mg by mouth every 8 hours as needed for pain Docusate 100-200 mg by mouth twice a day as needed for constipation No Smoking: If you smoke, Please STOP! Call for help. Follow-up with: Oneyda Peter MD [Provider Admit Priv/Credential] -
--- NOTE | 2021-11-12 19:18 | DISCHARGE SUMMARY ---
Discharge Summary Admit Date: 11/11/21 Discharge Date: 11/12/21 Discharging Provider: [place] Condition at Discharge: Good Discharge Disposition: 01 Home, Self Care - DIAGNOSES Admission Diagnoses: IUP at 39+2 wga Chronic hypertension Discharge Diagnoses with Status of Each Condition: Same and delivery of term gestation hemorrhage - HPI History of Present Illness: ID: Patient is a 36 yo admitted at 39+2 wga for IOL for CHTN HPI: Hx of elevated blood pressures in mild range since prior to 20 wga. Normal blood pressures at home. Not on medication. hx of GHTN in prior but denies pre-eclampsia. has been otherwise uncomplicated. Has needle phobia and poor reaction to blood draw. Declining all blood draws at admission. Desires AROM prior to starting pitocin or misoprostol. PNC HX: LMP: 02/09/2021 JENNA by LMP: 11/16/2021 Initial US on 04/23/21 at 10.6 wks c/w LMP dating FINAL JENNA 11/16/2021 PROBLEMS: Left pelviectasis: Noted at 37 weeks. Left renal of ectasis at 7 mm. Right normal at 6 mm. Needle phobia: Wants to avoid IV in labor if possible. Encourage patient to open as we will need this for IV hydration, emergency use, and oxytocin US Dopplers of RLE ordered stat to assess RLE- normal -Reviewed warning signs. Nl exam. 08/18/21 CHTN: Given elevated BP at 11 weeks; techincally CHTN hx of GHTN: Elevated BP in mild range. See noted. Has normal BPS at home -Started ASA at 12 weeks -UA with negative protein -Repeat 24H urine 10/15/21 -IOL at 39 weeks -Growth us ordered 10/20- Anemia: starting bid iron and vit C A+/rubella immune Genetic testing: HEIDI 46XY Declines AFP and carrier screening despite child care counselor FAS: Posterior, 3 VC. FAS wnl, EFW 33%ile, CL>3 cm. Incomplete cardiac views and facies. FU US 07/21/21 wnl Glucola 125 Flu: 06/23/2021 TDAP: 09/15/2021 COVID: vaccination x2. Aug/Sep 2020 Moderna. booster 08/13/2021 GBS: negative HSV:Denies Breast pump rx: 07/21/2021 MOD: anticipate IOL at 39 weeks PP contraception: TBD PAP: 09/22/20-unsatisfactory. HPV negative - HOSPITAL COURSE Hospital Course: Patient is a 36 yo admitted at 39+2 wga for induction of labor for CHTN. STAGE I: Initial SVE was 2.5/75%/-2 station. Category I tracing. Patient requested artificial rupture of membranes as first step in induction process. Risks were reviewed and patient opted to proceed. AROM at 13:15 with passage of clear fluid. GBS negative. Epidural for pain management. Cat I tracing throughout Stage I labor. No pitocin augmentation was indicated. Complete at 21:40 STAGE II: Patient pushed well for 3 minutes to deliver a viable female infant from vertex presentation. delivered from CAROL presentation and left shoulder was anterior and delivered easily. was delivered to maternal chest. Cord was clamped x2 and cut once pulsations had ceased. No nuchal cord. Apgars were 9/9. BW 3917 g. STAGE III: Placenta delivered at 21:49 with manual expression. Perineum was examined and a small 1st degree laceration was noted at the midline. It was repaired with 3-0 Vicryl in the usual sterile fashion. Patient had a hemorrhage with QBL showing blood loss of 1470 cc. Patient was treated with 10 units of pitocin IM followed with misoprostol 600 mcg buccal, hemabate 0.25 mg IM, TXA, and then an infusion of oxytocin 30 units. Good hemostasis was noted. Vital signs were stable and appropriate post delivery. Received ferric gluconate IV 125 mg x1 on PPD#1. Meeting goals for discharge on PPD#1. Routine discharge instructions were given. - ALLERGIES Allergies/Adverse Reactions: Allergies Allergy/AdvReac Type Severity Reaction Status Date / Time hay fever AdvReac Mild Unknown Uncoded 11/11/21 15:22 pollen AdvReac Mild Unknown Uncoded 11/11/21 15:21 - MEDICATIONS Home Medications: Ambulatory Orders Medication Instructions Recorded Confirmed Docusate Sodium 100Mg Capsule 100 - 200 mg PO BID PRN #60 cap 11/12/21 [Colace 100Mg Capsule] - PHYSICAL EXAM AT DISCHARGE General Appearance: positive: No acute distress Neck: positive: Nml inspection Respiratory: positive: No respiratory distress Cardiovascular: positive: Other (RR) Abdomen: positive: Other (S&NT/ND. FF at umbilicus) Skin: positive: Color nml Extremities: positive: Non-tender, No pedal edema Neurologic/Psychiatric: positive: Oriented x3 - LABS Result Diagrams: 11/12/21 05:26 - FOLLOW UP Follow Up: [address] Peter - TIME SPENT Time Spent in Discharge (Minutes): 30
--- NOTE | 2021-11-12 23:30 | Labor Flowsheet ---
Labor Flowsheet Datetime Report Generated by CPN: 11/12/2021 23:29 Datetime: 11/12/2021 16:52 VITAL SIGNS NBP Sys/Candy/Mean (mmHg): 127 : 59 : 75 Pulse: 82 LaborFlag: Labor Datetime: 11/11/2021 23:59 SpO2 (%): 100 Datetime: 11/11/2021 21:37 Vaginal Bleeding: -+ Datetime: 11/11/2021 21:00 Stage of : Labor UTERINE ACTIVITY Monitor Mode: External Frequency (min): 2-2.5 Quality: Strong Duration (sec): 60-70 Pattern: Normal: <= 5 Contractions in 10 Minutes Resting Tone (Palpate): Relaxed ASSESSMENT A Monitor Mode: External US FHR Baseline Rate : 130 FHR Baseline Changes: No Baseline Change Variability: Moderate 6-25 bpm Accelerations: 15X15 Decelerations: None Oxygen Method: Room Air Datetime: 11/11/2021 19:48 Epidural Procedure: Loading Dose; Completed Epidural Procedure Other: Pump Started Datetime: 11/11/2021 19:46 MEDICATIONS Magnesium/Antihypertensives: Ephedrine IV (mg) @ 10 Antiemetics/Antacids: Zofran (mg) @ 4 Datetime: 11/11/2021 19:23 Category: Category I PROCEDURE TIME OUT Procedure Type: 1925 Procedure Verify: Correct Patient Identity; Correct Side and Site are Marked; Accurate Procedure Co nsent Form; Agreement on Procedure to be Done; Correct Patient Position ANESTHESIA Anesthesia Plans: Epidural Epidural Positioning: Sitting Datetime: 11/11/2021 17:52 COMMUNICATION Communication: Call/Page Placed to Provider Communication Comments: VE and strip reported to MD. Pt. requesting epidural. Datetime: 11/11/2021 17:43 Hygiene: Lulu Care; Underpad Changed; Peripad Changed I/O Interventions: Up to BR Datetime: 11/11/2021 17:37 VAGINAL EXAM Dilatation (cm): 5.0 Effacement (%): 75 Station: -1 Exam by: gambsc Cervix, Consistency: Moderate Cervix, Position: Midposition Datetime: 11/11/2021 16:45 PAIN Pain Scale: 6 Pain Goal: 9 Pain Coping: Talking Through Contractions; Breathing Through Contractions Datetime: 11/11/2021 16:44 Temperature (C): 36.5 Datetime: 11/11/2021 15:30 Contraction Comments: unable to assess contractions, pt. up and walking in hallway Datetime: 11/11/2021 15:23 Patient Care Comments: walking in hallway Datetime: 11/11/2021 14:56 Monitor Interventions for UA: Charlton Adjusted Datetime: 11/11/2021 13:15 Membrane Status: Ruptured Membranes Rupture Method: Artificial Amniotic Fluid Color: Clear Amniotic Fluid Amount: Moderate Datetime: 11/11/2021 13:01 Comments: nurse in room, maternal heart recording Datetime: 11/11/2021 11:59 Monitor Interventions for FHR: Ultrasound Adjusted Datetime: 11/11/2021 11:56 Patient Position/Activity: High Fowlers Datetime: 11/11/2021 11:51 PATIENT CARE IV/Blood Work: IV Started
== END 2021-11-12 23:28 | disposition home or self-care (01) | DRG 806 ==
LOC: WFO 07:58 → FBP 08:01 → WFO 09:01 → FBP 09:02 → OBSVTOIN 18:42
PROVIDERS: ADMIT Obstetrics & Gynecology; ATTEND Obstetrics & Gynecology
PROC: 10907ZC Drainage of Amniotic Fluid, Therapeutic from Products of Conception, Via Natural or Artificial Opening (ICD-10-PCS; principal; 2021-11-11)
PROC: 10E0XZZ Delivery of Products of Conception, External Approach (ICD-10-PCS; 2021-11-11)
PROC: 0HQ9XZZ Repair Perineum Skin, External Approach (ICD-10-PCS; 2021-11-11)
DX: O10.92 Unspecified pre-existing hypertension complicating childbirth (principal); O72.0 Third-stage hemorrhage; Z37.0 Single live birth; O99.214 Obesity complicating childbirth; O70.0 First degree perineal laceration during delivery; O99.02 Anemia complicating childbirth; Z3A.39 39 weeks gestation of pregnancy; Z67.10 Type A blood, Rh positive
CPT/HCPCS: 36415; 85025; 86850; 86900; 86901; A9270; J2916; J7120; Q0162

== ENCOUNTER 2023-01-11 11:13 | Outpatient (CLI) | payer OTHER ==
[2023-01-11 14:21] LABS: HCT - HEMATOCRIT 44.1 % (37.0-47.0); HGB - HEMOGLOBIN 13.9 g/dL (12.0-16.0); MEAN CORPUSCULAR HEMOGLOBIN 27.5 pg (27.0-31.0); MEAN CORPUSCULAR HGB CONC 31.5 g/dL (32.0-36.0); MEAN CORPUSCULAR VOLUME 87.3 fL (81.0-99.0); MEAN PLATELET VOLUME 10.1 fL (7.9-10.8); RED BLOOD COUNT 5.05 10^6/uL (4.20-5.40); RED CELL DISTRIBUTION WIDTH 13.9 % (12.0-15.0); WHITE BLOOD COUNT 8.8 x10^3/uL (4.8-10.8)
[2023-01-11 15:36] LABS: THYROID STIMULATING HORMONE 0.95 uIU/mL (0.34-5.60)
[2023-01-11 15:40] LABS: FERRITIN 20.1 ng/mL (11.0-306.8)
[2023-01-11 15:41] LABS: ALBUMIN 4.4 g/dL (3.2-5.5); ALBUMIN/GLOBULIN RATIO 1.2 (1.0-2.2); BILIRUBIN,TOTAL 0.7 mg/dL (0.2-1.0); CALCIUM 9.4 mg/dL (8.5-10.3); CREATININE 0.7 mg/dL (0.4-1.0)
== END 2023-01-11 11:14 | disposition home or self-care (01) ==
LOC: LAB.S 11:13
PROVIDERS: ATTEND Nurse Practitioner
DX: I49.9 Cardiac arrhythmia, unspecified (principal); F41.9 Anxiety disorder, unspecified; D64.9 Anemia, unspecified; Z86.79 Personal history of other diseases of the circulatory system
CPT/HCPCS: 36415; 80053; 82728; 83540; 84443; 84466; 85027